=== PATIENT | female | born 1980 | race African-American/Black ===

== ENCOUNTER 2024-02-16 16:46 | Emergency (ER) | payer OTHER ==
[2024-02-16 17:03] VITALS: TEMP 98.4; BMI 30.2
[2024-02-16] MEDS ORDERED: ONDANSETRON 4 MG/2 ML VIAL ONE (19:41)
[2024-02-16] MEDS ORDERED: ACETAMINOPHEN INJECTION 100 ML ONE (19:41)
[2024-02-16] MEDS ORDERED: FAMOTIDINE 20 MG/50 ML IVPB 20 MG/50 ML MG IVPB ONE (19:42)
[2024-02-16] MEDS: ACETAMINOPHEN 1000 MG/100 ML BAG IVPB ONE (19:52)
[2024-02-16] MEDS: FAMOTIDINE 20 MG/50 ML IVPB 20 MG/50 ML MG IVPB ONE (19:53)
[2024-02-16] MEDS: ONDANSETRON 4 MG/2 ML VIAL IVPUSH ONE (19:53)
[2024-02-16 19:55] LABS: PH,URINE 5.5 (5.0-8.0); URINE APPEARANCE CLOUDY; URINE BILIRUBIN NEGATIVE (NEGATIVE); URINE COLOR YELLOW; URINE GLUCOSE (UA) NEGATIVE (NEGATIVE); URINE KETONE TRACE (NEGATIVE); URINE LEUK ESTERASE NEGATIVE (NEGATIVE); URINE NITRITE NEGATIVE (NEGATIVE); URINE PROTEIN NEGATIVE (NEGATIVE)
[2024-02-16 19:55] LABS: BASO % 0.2 % (0-2.0); EOS % 0.5 % (0-4.5); HEMATOCRIT 39.9 % (32.4-45.2); HEMOGLOBIN 13.2 GM/dL (10.7-15.3); LYMPH % 16.8 % (8-40); MCH 28.9 pg (25.7-33.7); MCHC 33.1 g/dl (32.0-36.0); MEAN CELL VOLUME 87.2 fl (80-96); MEAN PLT VOLUME 7.6 fl (7.5-11.1); MONO % 6.8 % (3.8-10.2); NEUT % 75.7 % (42.8-82.8); PLATELET COUNT 293 10^3/uL (134-434); RBC 4.58 M/mm3 (3.60-5.2); RDW 14.1 % (11.6-15.6); WHITE BLOOD COUNT 9.9 K/mm3 (4.0-10.0)
[2024-02-16 20:10] LABS: HCG,QUALITATIVE URINE Negative
[2024-02-16 20:22] LABS: POTASSIUM 3.5 mmol/L (3.5-5.1)
[2024-02-16 20:25] LABS: ALBUMIN 4.5 g/dl (3.4-5.0); BLOOD UREA NITROGEN 18.4 mg/dL (7-18); CALCIUM 10.4 mg/dL (8.5-10.1)
[2024-02-16 20:28] LABS: CREATININE 0.9 mg/dL (0.55-1.3)
[2024-02-16 20:29] LABS: TOT PROT 8.6 g/dl (6.4-8.2)
[2024-02-16 20:31] LABS: BILIRUBIN,TOTAL 0.4 mg/dL (0.2-1)
[2024-02-16] MEDS ORDERED: KETOROLAC TROMETHAMINE 30 MG/1 ML VIAL ONE (21:39)
[2024-02-16] MEDS ORDERED: CEFTRIAXONE 1 GM/50 ML BAG ONE (21:40)
[2024-02-16 21:45] VITALS: BP 119/83; PULSE 65; RESP 15
[2024-02-16] MEDS: KETOROLAC TROMETHAMINE 30 MG/1 ML VIAL IVPUSH ONE (21:48)
[2024-02-16] MEDS: CEFTRIAXONE 1,000 MG in DEXTROSE 5%-WATER - 50 ML IVPB ONE (21:48)
== END 2024-02-16 22:06 | disposition home or self-care (01) ==
LOC: JER 16:46
PROC: 3E03329 Introduction of Other Anti-infective into Peripheral Vein, Percutaneous Approach (ICD-10-PCS; principal; 2024-02-16)
PROC: 3E033NZ Introduction of Analgesics, Hypnotics, Sedatives into Peripheral Vein, Percutaneous Approach (ICD-10-PCS; 2024-02-16)
PROC: 3E033GC Introduction of Other Therapeutic Substance into Peripheral Vein, Percutaneous Approach (ICD-10-PCS; 2024-02-16)
PROC: 3E0333Z Introduction of Anti-inflammatory into Peripheral Vein, Percutaneous Approach (ICD-10-PCS; 2024-02-16)
PROC: 3E033GC Introduction of Other Therapeutic Substance into Peripheral Vein, Percutaneous Approach (ICD-10-PCS; 2024-02-16)
DX: N10 Acute pyelonephritis (principal); R10.84 Generalized abdominal pain; R11.0 Nausea
CPT/HCPCS: 36415; 74176-TC; 76830-TC; 80053; 81003; 82962; 83690; 84484; 84703; 85025; 87086; 93005; 93010; 99285-25; J0131